=== PATIENT | female | born 1995 | race African-American/Black ===

== ENCOUNTER 2018-09-16 12:13 | Emergency (ER) | payer MEDICAID ==
[~2018-09-16] VITALS: Ht 157.5 cm; Wt 48.5 kg
[2018-09-16 12:08] VITALS: BP 103/66
[~2018-09-16 12:13] MED LIST: AUGMENTIN 875-1 EAC1 PO; CEPHALEXIN500 MG ORAL; MOTRIN600 MG PO; SEROQUEL25 MG ORAL; SERTRALINE HCL25 MG ORAL
[2018-09-16] MEDS ORDERED: Isovue-300 100ml vial INJ PRN (12:15)
--- NOTE | 2018-09-16 12:23 | Emergency Room Report ---
History of Present Illness General Chief Complaint: Abdominal Pain Source: Patient, EMS Present Illness HPI 23-year-old female with no medical problems other than PTSD, accompanied by a service dog, and homelessness with recent meth use 2 days ago presents with abdominal pain for 2-3 days which is localized mainly in the periumbilical area , crampy, intermittent, moderate intensity, she has not try medications for it, and reports it is not bothering her currently. Patient denies fevers, vomiting , diarrhea, urinary symptoms, , vaginal complaints, shortness breath, any other symptoms at all. Allergies: Coded Allergies: No Known Allergies (Unverified , 06/11/13) Patient History Past Medical History: see triage record Last Menstrual Period: bcp irregular Now: No Reviewed Nursing Documentation: PMH: Agreed; PSxH: Agreed Nursing Documentation-PMH Past Medical History: No History, Except For History Of Psychiatric Problem: Yes - bipolar schizophrenia Review of Systems All Other Systems: negative except mentioned in HPI Physical Exam Vital Signs Date Time Temp Pulse Resp B/P (MAP) Pulse Ox O2 Delivery O2 Flow Rate FiO2 09/16/18 12:00 97.7 85 18 103/66 100 Room Air Sp02 EP Interpretation: reviewed, normal General Appearance: no apparent distress, alert, non-toxic Head: normocephalic Eyes: bilateral eye normal inspection, bilateral eye PERRL, bilateral eye EOMI ENT: normal ENT inspection, hearing grossly normal, normal pharynx, no angioedema, normal voice, moist mucus membranes Neck: normal inspection, full range of motion, supple, supple/symm/no masses Respiratory: chest non-tender, lungs clear, normal breath sounds, chest symmetrical, palpation of chest normal Cardiovascular #1: normal peripheral pulses, regular rate, rhythm Cardiovascular #2: 2+ radial (R), 2+ radial (L), 2+ dorsalis pedis (R), 2+ dorsalis pedis (L) Gastrointestinal: normal inspection, non tender, soft, no mass, no guarding, no rebound Rectal: deferred Genitourinary: normal inspection, no CVA tenderness Musculoskeletal: back normal, gait/station normal, normal range of motion, non- tender, no calf tenderness, Sandip's Sign negative Neurologic: alert, responsive, lead manufacturing engineer III-XII nml as tested, motor strength/tone normal, sensory intact, speech normal Psychiatric: judgement/insight normal, memory normal, mood/affect normal Skin: normal color, no rash, warm/dry, normal turgor Lymphatic: no adenopathy Medical Decision Making Homeless Attestation I, The treating physician Dr. Stafford, has assessed and agrees that patient is medically stable for discharge to an outpatient disposition. Diagnostic Impression: Primary Impression: Abdominal pain ER Course Patient with normal labs, urinalysis positive for UTI, also for marijuana and methamphetamines, has a soft nontender abdomen, not having active pain here will discharge with Macrobid, follow-up with PMD. Last Vital Signs Date Time Temp Pulse Resp B/P (MAP) Pulse Ox O2 Delivery O2 Flow Rate FiO2 09/16/18 12:08 85 18 Room Air 09/16/18 12:08 97.7 103/66 100 Disposition: HOME, SELF-CARE Condition: Stable DOREEN STAFFORD M.D Sep 16, 2018 12:23
[2018-09-16] MEDS ORDERED: Morphine Sulfate 4mg/ml Inj (IV USE ONLY) ONE (12:31)
[2018-09-16] MEDS: Morphine Sulfate 4mg/ml Inj (IV USE ONLY) IVP ONE ×2 (12:34→12:38)
[2018-09-16 12:46] LABS: APPEARANCE,URINE CLOUDY; BILIRUBIN, URINE NEGATIVE (NEGATIVE); COLOR,URINE YELLOW; GLUCOSE, URINE (UA) NEGATIVE (NEGATIVE); KETONES,URINE NEGATIVE (NEGATIVE); LEUKOCYTE ESTERASE ,URINE 1+ (NEGATIVE); NITRITE,URINE NEGATIVE (NEGATIVE); PH,URINE 6 (4.5-8.0); PROTEIN,URINE 1+ (NEGATIVE); UROBILINOGEN,URINE 1 MG/DL (0.0-1.0)
[2018-09-16 12:48] LABS: BASOPHILS % (AUTO) 1.3 % (0.0-2.0); EOSINOPHILS % (AUTO) 1.8 % (0.0-3.0); HEMATOCRIT 43.1 % (37.0-47.0); LYMPHOCYTES % (AUTO) 37.2 % (20.0-45.0); MEAN CORPUSCULAR VOLUME 102 FL (80-99); MONOCYTES % (AUTO) 10.8 % (1.0-10.0); NEUTROPHILS % (AUTO) 48.9 % (45.0-75.0); PLATELET COUNT 162 K/UL (150-450); RED BLOOD COUNT 4.22 M/UL (4.20-5.40); RED CELL DISTRIBUTION WIDTH 12.6 % (11.6-14.8); WHITE BLOOD COUNT 5.6 K/UL (4.8-10.8)
[2018-09-16 12:53] LABS: ANION GAP 8 mmol/L (5-15); BLOOD UREA NITROGEN 10 mg/dL (7-18); CARBON DIOXIDE 27 MMOL/L (21-32); CHLORIDE 107 MMOL/L (98-107); POTASSIUM 4.4 MMOL/L (3.5-5.1); SODIUM 142 MMOL/L (136-145)
[2018-09-16 12:57] LABS: ALANINE AMINOTRANSFERASE 22 U/L (12-78); ALBUMIN 3.6 G/DL (3.4-5.0); ALKALINE PHOSPHATASE 67 U/L (46-116); ASPARTATE AMINO TRANSFERASE 24 U/L (15-37); BILIRUBIN,TOTAL 0.5 MG/DL (0.2-1.0)
[2018-09-16] MEDS ORDERED: NITROFURANTOIN100 M2 ORAL (13:54)
--- NOTE | 2018-09-16 13:58 | Diagnostic Imaging Report ---
Indication: Abdominal pain Technique: Continuous helical transaxial imaging of the abdomen and pelvis was obtained from the lung bases to the pubic symphysis during intravenous contrast administration. Coronal 2-D reformats were also obtained. Study obtained in a Siemens sensation [address] Automatic Exposure Control was utilized. Total Dose length Product (DLP): 428.[address] Dose Index Volume (CTDIvol): 9.23 mGy Comparison: None Findings: Exam is limited by the nonadministration of oral contrast material and the relative absence of intra-abdominal fat given the patient's age. The lung bases are clear. The solid organs including the liver and spleen, pancreas and kidneys appear normal. Gallbladder is unremarkable. No evidence of bowel dilatation or obstruction. The appendix is probably identified at least partially and unremarkable as such. There are no secondary signs of acute appendicitis. Uterus is noted. The bladder is nondistended. IMPRESSION: No acute findings. The CT scanner at [facility] is accredited by the [employer] and the scans are performed using dose optimization techniques as appropriate to a performed exam including Automatic Exposure control.
[2018-09-16 14:43] VITALS: BP_SYST 103; BP_SYST 105; BP_DIAS 62; BP_DIAS 66
== END 2018-09-16 14:44 | disposition home or self-care (01) ==
LOC: EDBD 12:13 → EMR 12:21
DX: R10.33 Periumbilical pain (principal); F31.9 Bipolar disorder, unspecified; F20.9 Schizophrenia, unspecified
CPT/HCPCS: 36415; 74177; 80053; 80307; 81003; 81025; 83690; 85025; 87086; 96360; 99284; Q9967; J2405

== ENCOUNTER 2018-10-29 14:11 | Emergency (ER) | payer MEDICAID ==
[~2018-10-29] VITALS: Ht 157.5 cm; Wt 45.4 kg
[~2018-10-29 14:11] MED LIST changes: +NITROFURANTOIN100 M2 ORAL
--- NOTE | 2018-10-29 14:21 | Emergency Room Report ---
History of Present Illness General Chief Complaint: Abdominal pain, 5150 Source: Patient, EMS Present Illness HPI Patient has a history of depression anxiety psychiatric disorder. Patient apparently spoke with her therapist today. She complained of feeling suicidal. As a result her therapist called [phone] 1 patient was brought here for further evaluation. Patient is currently in police custody and have been placed on a 5150 hold. Patient states that she has some abdominal discomfort because she ate something last night. She is uncertain exactly what she ate. She denies any vomiting does have some nausea. Complains of pain worse in the epigastrium. Denies any dysuria urinary frequency. Denies any fever chest pain. Denies any auditory or visual hallucinations. Symptoms noted to be severe. No other modifying factors. No other associated signs and symptoms. No other complaints were noted. Allergies: Coded Allergies: No Known Allergies (Unverified , 06/11/13) Patient History Past Medical History: psych hx Past Surgical History: none Pertinent Family History: none Social History: Denies: smoking, alcohol use, drug use Reviewed Nursing Documentation: PMH: Agreed; PSxH: Agreed Review of Systems All Other Systems: negative except mentioned in HPI Physical Exam Afebrile. Vital signs stable. O2 saturation 98% on room air which is interpreted to be normal by me. Sp02 EP Interpretation: reviewed, normal General Appearance: normal inspection, alert, mild distress - Anxious Head: atraumatic Eyes: bilateral eye normal inspection ENT: normal ENT inspection, hearing grossly normal, normal voice Neck: normal inspection, full range of motion, supple, no bony tend Respiratory: normal inspection, lungs clear, normal breath sounds, no respiratory distress, no retraction, no wheezing Cardiovascular #1: regular rate, rhythm, no edema Gastrointestinal: normal inspection, normal bowel sounds, soft, no guarding, no hernia, tenderness - Epigastric Genitourinary: no CVA tenderness Musculoskeletal: normal inspection, back normal, normal range of motion Neurologic: normal inspection, alert, responsive, speech normal Psychiatric: depressed affect, anxious Skin: normal inspection, normal color, no rash Medical Decision Making Diagnostic Impression: Primary Impression: Depression Additional Impression: Drug abuse ER Course Patient presents emergency department today with depression. Patient had ingested some things that made her feel ill. Patient denies any ingestion of Tylenol or Motrin or aspirin. Patient apparently called her therapist's with concerns for suicidal ideation. Patient is currently on 5150. Differential considerations include drug overdose, depression, suicidal ideation, electrolyte abnormality, just to name a few. Given the severity of the patient' s presentation I felt this is a highly complex patient. This patient required extensive workup. Because the patient's presentation patient will require laboratory work-up. Laboratory work-up was negative except for methamphetamines which is consistent with patient's drug abuse. Patient is medically cleared. Will require psychiatric evaluation for possible placement or outpatient treatment. Labs Test 10/29/18 15:19 10/29/18 15:45 White Blood Count 8.9 K/UL (4.8-10.8) Red Blood Count 3.93 M/UL (4.20-5.40) Hemoglobin 13.5 G/DL (12.0-16.0) Hematocrit 38.5 % (37.0-47.0) Mean Corpuscular Volume 98 FL (80-99) Mean Corpuscular Hemoglobin 34.3 PG (27.0-31.0) Mean Corpuscular Hemoglobin Concent 35.0 G/DL (32.0-36.0) Red Cell Distribution Width 12.0 % (11.6-14.8) Platelet Count 203 K/UL (150-450) Mean Platelet Volume 6.8 FL (6.5-10.1) Neutrophils (%) (Auto) 65.9 % (45.0-75.0) Lymphocytes (%) (Auto) 27.7 % (20.0-45.0) Monocytes (%) (Auto) 5.4 % (1.0-10.0) Eosinophils (%) (Auto) 0.1 % (0.0-3.0) Basophils (%) (Auto) 0.9 % (0.0-2.0) Sodium Level 140 MMOL/L (136-145) Potassium Level 3.3 MMOL/L (3.5-5.1) Chloride Level 103 MMOL/L (98-107) Carbon Dioxide Level 25 MMOL/L (21-32) Anion Gap 12 mmol/L (5-15) Blood Urea Nitrogen 5 mg/dL (7-18) Creatinine 0.9 MG/DL (0.55-1.30) Estimat Glomerular Filtration Rate > 60 mL/min (>60) Glucose Level 89 MG/DL (74-106) Calcium Level 9.6 MG/DL (8.5-10.1) Total Bilirubin 0.7 MG/DL (0.2-1.0) Aspartate Amino Transf (AST/SGOT) 29 U/L (15-37) Alanine Aminotransferase (ALT/SGPT) 51 U/L (12-78) Alkaline Phosphatase 76 U/L (46-116) Total Protein 8.3 G/DL (6.4-8.2) Albumin 4.8 G/DL (3.4-5.0) Globulin 3.5 g/dL Albumin/Globulin Ratio 1.4 (1.0-2.7) Lipase 380 U/L (73-393) Salicylates Level 0.8 ug/mL (2.8-20) Acetaminophen Level < 2 MCG/ML (10-30) Serum Alcohol < 3 mg/dL Urine Color Pale yellow Urine Appearance Clear Urine pH 5 (4.5-8.0) Urine Specific [place] 1.010 (1.005-1.035) Urine Protein Negative (NEGATIVE) Urine Glucose (UA) Negative (NEGATIVE) Urine Ketones Negative (NEGATIVE) Urine Blood Negative (NEGATIVE) Urine Nitrite Negative (NEGATIVE) Urine Bilirubin Negative (NEGATIVE) Urine Urobilinogen Normal MG/DL (0.0-1.0) Urine Leukocyte Esterase Negative (NEGATIVE) Urine HCG, Qualitative Negative (NEGATIVE) Urine Opiates Screen Negative (NEGATIVE) Urine Barbiturates Screen Negative (NEGATIVE) Phencyclidine (PCP) Screen Negative (NEGATIVE) Urine Amphetamines Screen Positive (NEGATIVE) Urine Benzodiazepines Screen Negative (NEGATIVE) Urine Cocaine Screen Negative (NEGATIVE) Urine Marijuana (THC) Screen Negative (NEGATIVE) Status: improved Disposition: XFER TO PSYCH HOSP/UNIT Condition: Serious Dominic Rascon MD October 29, 2018 14:21
[2018-10-29] MEDS ORDERED: LORazepam Inj 2mg/ml 1ml IV ONE (14:30)
[2018-10-29 15:29] LABS: BASOPHILS % (AUTO) 0.9 % (0.0-2.0); EOSINOPHILS % (AUTO) 0.1 % (0.0-3.0); HEMATOCRIT 38.5 % (37.0-47.0); HEMOGLOBIN 13.5 G/DL (12.0-16.0); LYMPHOCYTES % (AUTO) 27.7 % (20.0-45.0); MEAN CORPUSCULAR VOLUME 98 FL (80-99); MONOCYTES % (AUTO) 5.4 % (1.0-10.0); NEUTROPHILS % (AUTO) 65.9 % (45.0-75.0); PLATELET COUNT 203 K/UL (150-450); RED BLOOD COUNT 3.93 M/UL (4.20-5.40); WHITE BLOOD COUNT 8.9 K/UL (4.8-10.8)
[2018-10-29 15:33] LABS: ANION GAP 12 mmol/L (5-15); BLOOD UREA NITROGEN 5 mg/dL (7-18); CALCIUM 9.6 MG/DL (8.5-10.1); CARBON DIOXIDE 25 MMOL/L (21-32); CHLORIDE 103 MMOL/L (98-107); CREATININE 0.9 MG/DL (0.55-1.30); POTASSIUM 3.3 MMOL/L (3.5-5.1); SODIUM 140 MMOL/L (136-145)
[2018-10-29 15:37] VITALS: BP 126/83
[2018-10-29 15:37] LABS: ALANINE AMINOTRANSFERASE 51 U/L (12-78); ALBUMIN 4.8 G/DL (3.4-5.0); ALBUMIN/GLOBULIN RATIO 1.4 (1.0-2.7); ALKALINE PHOSPHATASE 76 U/L (46-116); ASPARTATE AMINO TRANSFERASE 29 U/L (15-37); BILIRUBIN,TOTAL 0.7 MG/DL (0.2-1.0)
[2018-10-29 16:24] LABS: APPEARANCE,URINE CLEAR; BILIRUBIN, URINE NEGATIVE (NEGATIVE); COLOR,URINE PALE YELLOW; GLUCOSE, URINE (UA) NEGATIVE (NEGATIVE); KETONES,URINE NEGATIVE (NEGATIVE); LEUKOCYTE ESTERASE ,URINE NEGATIVE (NEGATIVE); NITRITE,URINE NEGATIVE (NEGATIVE); PH,URINE 5 (4.5-8.0); PROTEIN,URINE NEGATIVE (NEGATIVE); UROBILINOGEN,URINE NORMAL MG/DL (0.0-1.0)
[2018-10-29 18:46] VITALS: BP 118/75
[2018-10-29 21:40] VITALS: BP 113/75
[2018-10-30 05:35] VITALS: BP 115/73
[2018-10-30 07:20] VITALS: BP 112/67
[2018-10-30 12:20] VITALS: BP 98/67
== END 2018-10-30 12:20 ==
LOC: EDBD 14:11 → EMR 14:47
DX: F32.9 Major depressive disorder, single episode, unspecified (principal); F19.10 Other psychoactive substance abuse, uncomplicated; F41.9 Anxiety disorder, unspecified
CPT/HCPCS: 36415; 80053; 80307; 80329; 81003; 81025; 83690; 85025; 96374; 96375; 99284; J2405; J8499